=== PATIENT | male | born 1980 | race Caucasian/White ===

== ENCOUNTER 2025-01-18 16:04 | Emergency (ER) | payer SELFPAY ==
[~2025-01-18] VITALS: Ht 172.7 cm; Wt 67.0 kg
[2025-01-18 16:30] VITALS: BP 134/67; PULSE 111; RESP 18; TEMP 36.8; O2SAT 96
== END 2025-01-18 18:22 | disposition left against medical advice (07) ==
LOC: ER 16:04
DX: R10.84 Generalized abdominal pain (principal)
CPT/HCPCS: 99281